=== PATIENT | female | born 1950 | race Caucasian/White ===

== ENCOUNTER → 2018-11-19 | Outpatient (CLI) | payer OTHER, MEDICARE | LOC: CIMAGING 11:54 | PROVIDERS: ATTEND Family Medicine | DX: J06.9 Acute upper respiratory infection, unspecified (principal) | CPT/HCPCS: 71046-PO ==

== ENCOUNTER → 2018-12-25 | Outpatient (CLI) | payer OTHER, MEDICARE | PROVIDERS: ATTEND Physician Assistant | DX: R13.14 Dysphagia, pharyngoesophageal phase (principal); R49.0 Dysphonia; R05 Cough; F45.8 Other somatoform disorders; J38.01 Paralysis of vocal cords and larynx, unilateral | CPT/HCPCS: 92611-GN ==

== ENCOUNTER → 2019-04-07 | Outpatient (CLI) | payer OTHER, MEDICARE | LOC: BHLMT 15:30 ==